=== PATIENT | female | born 1975 | race Native Hawaiian/Other Pacific Islander ===

== ENCOUNTER 2016-07-04 13:53 | Outpatient (CLI) | payer MEDICAID | END 2016-07-04 13:54 | disposition home or self-care (01) | DX: E11.9 Type 2 diabetes mellitus without complications (principal); I10 Essential (primary) hypertension ==

== ENCOUNTER 2016-07-18 15:15 | Outpatient (CLI) | payer MEDICAID | END 2016-07-18 15:16 | disposition home or self-care (01) | DX: M77.32 Calcaneal spur, left foot (principal) ==

== ENCOUNTER 2016-07-26 18:56 | Emergency (ER) | payer MEDICAID ==
[2016-07-26] MEDS ORDERED: KETOROLAC 60 MG/2 ML VIAL IM STA (19:37)
[2016-07-26] MEDS ORDERED: ONDANSETRON ODT 4 MG TABLET TL STA (19:37)
[2016-07-26] MEDS ORDERED: CYCLOBENZAPRINE 10 MG TABLET PO STA (19:37)
[2016-07-26] MEDS ORDERED: CYCLOBENZAPRINE 10 MG TABLET PO ONE (19:41)
[2016-07-26] MEDS ORDERED: KETOROLAC 60 MG/2 ML VIAL ONE (19:42)
[2016-07-26] MEDS ORDERED: ONDANSETRON ODT 4 MG TABLET ONE (19:42)
== END 2016-07-26 20:13 | disposition home or self-care (01) ==
DX: M62.838 Other muscle spasm (principal); S16.1XXA Strain of muscle, fascia and tendon at neck level, initial encounter; X58.XXXA Exposure to other specified factors, initial encounter; E78.00 Pure hypercholesterolemia, unspecified; J45.909 Unspecified asthma, uncomplicated; E11.9 Type 2 diabetes mellitus without complications; Z79.84 Long term (current) use of oral hypoglycemic drugs
CPT/HCPCS: 96372; 99283; 99284; A9270; Q0162

== ENCOUNTER 2016-10-10 07:34 | Outpatient (CLI) | payer SELFPAY ==
[2016-10-10 13:50] LABS: HEMOGLOBIN A1C 0.53 g/dL
[2016-10-10 13:58] LABS: CALCIUM 9.4 mg/dL (8.5-10.3)
== END 2016-10-10 07:35 | disposition home or self-care (01) ==
LOC: LAB.N 07:34
PROVIDERS: ATTEND Family Medicine
DX: E11.9 Type 2 diabetes mellitus without complications (principal)
CPT/HCPCS: 36415; 80048; 83036

== ENCOUNTER 2018-12-30 21:11 | Emergency (ER) | payer SELFPAY ==
[2018-12-30 21:40] LABS: BASOPHILS # (AUTO) 0.1 10^3/uL (0.0-0.1); BASOPHILS % (AUTO) 0.6 %; EOSINOPHILS # (AUTO) 0.2 10^3/uL (0.0-0.7); EOSINOPHILS % (AUTO) 2.5 %; LYMPHOCYTES # (AUTO) 2.1 10^3/uL (1.5-3.5); LYMPHOCYTES % (AUTO) 25.2 %; MEAN CORPUSCULAR HEMOGLOBIN 26.8 pg (27.0-31.0); MEAN CORPUSCULAR HGB CONC 32.1 g/dL (32.0-36.0); MEAN CORPUSCULAR VOLUME 83.4 fL (81.0-99.0); MEAN PLATELET VOLUME 10.6 fL (7.9-10.8); MONOCYTES # (AUTO) 0.6 10^3/uL (0.0-1.0); MONOCYTES % (AUTO) 7.7 %; NEUTROPHILS # (AUTO) 5.2 10^3/uL (1.5-6.6); NEUTROPHILS % (AUTO) 63.8 %; PLT - PLATELET COUNT 271 10^3/uL (130-450); RED BLOOD COUNT 5.23 10^6/uL (4.20-5.40); RED CELL DISTRIBUTION WIDTH 13.5 % (12.0-15.0); WHITE BLOOD COUNT 8.2 x10^3/uL (4.8-10.8)
[2018-12-30 21:52] LABS: ALBUMIN 3.9 g/dL (3.2-5.5); ALBUMIN/GLOBULIN RATIO 1.1 (1.0-2.2); BILIRUBIN,TOTAL 0.7 mg/dL (0.2-1.0); CREATININE 1.1 mg/dL (0.4-1.0); TOTAL PROTEIN 7.6 g/dL (6.7-8.2)
[2018-12-30 21:52] LABS: BILIRUBIN,URINE NEGATIVE (NEGATIVE); GLUCOSE, URINE (UA) NEGATIVE (NEGATIVE); KETONES,URINE (UA) NEGATIVE (NEGATIVE); LEUKOCYTE ESTERASE, URINE NEGATIVE (NEGATIVE); NITRITE,URINE NEGATIVE (NEGATIVE); OCCULT BLOOD,URINE NEGATIVE (NEGATIVE); PH,URINE 5.5 PH (5.0-7.5); PROTEIN,URINE NEGATIVE (NEGATIVE); UROBILINOGEN,URINE 0.2 (NORMAL) E.U./dL (NORMAL)
[2018-12-30 21:55] LABS: CLARITY,URINE CLEAR (CLEAR)
--- NOTE | 2018-12-30 23:48 | ED Physician Documentation ---
PD HPI ABD PAIN - Stated complaint Stated Complaint: HEART BURN/VOMITING - Chief complaint Chief Complaint: Abd Pain - History obtained from History obtained from: Patient - History of Present Illness Timing - onset: How many weeks ago (2) Timing - duration: Weeks (2) Timing - details: Gradual onset, Still present, Waxing and waning Quality: Cramping, Aching, Pain Location: Epigastric Radiation: Chest Improved by: Meds (acid reducing meds seem to help.). No: Eating Worsened by: Eating. No: Breathing, Palpation Associated symptoms: Nausea, Loss of appetite. No: Fever, Vomiting, Diarrhea, Melena, Weight loss Similar symptoms before: Has not had sx before Review of Systems Constitutional: denies: Fever, Chills, Myalgias Nose: denies: Rhinorrhea / runny nose, Congestion Throat: denies: Sore throat Cardiac: reports: Chest pain / pressure. denies: Palpitations, Pedal edema, Calf pain Respiratory: denies: Cough GI: reports: Abdominal Pain, Nausea. denies: Vomiting, Constipation, Diarrhea, Bloody / black stool : denies: Dysuria, Frequency Skin: denies: Rash, Lesions Musculoskeletal: denies: Neck pain, Back pain Neurologic: denies: Generalized weakness Endocrine: denies: Weight loss, Weight gain PD PAST MEDICAL HISTORY - Past Medical History Cardiovascular: Hypertension (but had been good after losing a lot of weight couple years ago. 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 : None HEENT: None Psych: None Musculoskeletal: None Derm: None - Past Surgical History Past Surgical History: Yes /DEFLECTOR OPERATOR: section, Tubal ligation - Present Medications Home Medications: Ambulatory Orders Medication Instructions Recorded Confirmed Atorvastatin [Lipitor] 10 mg PO DAILY 06/20/15 07/26/16 Ferrous Gluconate 324 mg PO DAILY 06/20/15 07/26/16 Loratadine 10 mg PO DAILY 06/20/15 07/26/16 Losartan [Cozaar] 50 mg PO DAILY 06/20/15 07/26/16 metFORMIN [Glucophage] 500 mg PO BID 06/20/15 06/20/15 Cetirizine HCl/Pseudoephedrine 1 each PO BID PRN #30 tab.er.12h 07/04/15 07/26/16 [Zyrtec-D Tablet] Cyclobenzaprine [Flexeril] 10 mg PO TID PRN #20 tablet 07/26/16 Ibuprofen [Motrin] 800 mg PO Q8H PRN #30 tablet 07/26/16 Ondansetron Odt [Zofran] 4 mg TL Q6H PRN #10 tablet 07/26/16 Lidocaine Viscous 2% [Xylocaine 5 ml PO Q4H PRN #100 ml 12/31/18 Viscous 2%] Omeprazole 20 mg PO DAILY #30 capsule. 12/31/18 Ondansetron Odt [Zofran] 4 mg TL Q6H PRN #15 tablet 12/31/18 Sucralfate [Carafate] 1 gm PO ACHS #28 tablet 12/31/18 - Allergies Allergies/Adverse Reactions: Allergies Allergy/AdvReac Type Severity Reaction Status Date / Time No Known Drug Allergies Allergy Verified 12/30/18 21:24 - Social History Does the pt smoke?: No Smoking Status: Never smoker Does the pt drink ETOH?: No Does the pt have substance abuse?: No - Immunizations Immunizations are current?: Yes - POLST Patient has POLST: No PD ED PE NORMAL - Vitals Vital signs reviewed: Yes - General General: Alert and oriented X 3, No acute distress, Well developed/nourished - HEENT HEENT: Pharynx benign - Neck Neck: Supple, no meningeal sign, No adenopathy - Cardiac Cardiac: RRR, No murmur - Respiratory Respiratory: Clear bilaterally - Abdomen Abdomen: Normal bowel sounds, Soft, Non distended, No organomegaly, Other (minimally tender epigastric area without guarding nor percussion tender. Not tender RUQ. ) - Back Back: No CVA TTP - Derm Derm: Normal color, Warm and dry - Neuro Neuro: Alert and oriented X 3, No motor deficit, Normal speech Results - Vitals Vitals: Vital Signs - 24 hr 12/30/18 12/30/18 12/31/18 21:19 23:53 00:36 Temperature 37 C 37 C Heart Rate 101 H 100 85 Respiratory 18 18 16 Rate Blood Pressure 181/119 H 192/111 H 176/101 H O2 Saturation 98 100 100 12/31/18 01:00 Temperature Heart Rate 70 Respiratory 17 Rate Blood Pressure 157/96 H O2 Saturation 99 Oxygen O2 Source Room air - Labs Labs: Laboratory Tests 12/30/18 12/30/18 12/30/18 21:34 21:34 21:45 WBC 8.2 RBC 5.23 Hgb 14.0 Hct 43.6 MCV 83.4 MCH 26.8 L MCHC 32.1 RDW 13.5 Plt Count 271 MPV 10.6 Neut # (Auto) 5.2 Lymph # (Auto) 2.1 Kings # (Auto) 0.6 Eos # (Auto) 0.2 Baso # (Auto) 0.1 Absolute Nucleated RBC 0.00 Nucleated RBC % 0.0 Sodium 137 Potassium 4.0 Chloride 103 Carbon Dioxide 25 Anion Gap 9.0 BUN 14 Creatinine 1.1 H Estimated GFR (MDRD) 54 L Glucose 136 H Calcium 9.0 Total Bilirubin 0.7 AST 20 ALT 19 Alkaline Phosphatase 41 L Total Protein 7.6 Albumin 3.9 Globulin 3.7 Albumin/Globulin Ratio 1.1 Lipase 36 Urine Color YELLOW Urine Clarity CLEAR Urine pH 5.5 Ur Specific [place] <=1.005 Urine Protein NEGATIVE Urine Glucose (UA) NEGATIVE Urine Ketones NEGATIVE Urine Occult Blood NEGATIVE Urine Nitrite NEGATIVE Urine Bilirubin NEGATIVE Urine Urobilinogen 0.2 (NORMAL) Ur Leukocyte Esterase NEGATIVE Ur Microscopic Review NOT INDICATED Urine Culture Comments NOT INDICATED PD MEDICAL DECISION MAKING - ED course Complexity details: reviewed results, re-evaluated patient (I would not treat BP beyond dose here, as she is without symptoms there and states her BP is usually good at home. Presume reactive to events of the day. To watch it over the next week or so. ), considered differential (seems like gastritis or ulcer type symptoms.), d/w patient Departure - Departure Disposition: 01 Home, Self Care Clinical Impression: Epigastric abdominal pain Gastritis Qualifiers: Gastritis type: unspecified gastritis Chronicity: acute Gastritis bleeding: without bleeding Qualified Code(s): K29.00 - Acute gastritis without bleeding High blood pressure Qualifiers: Hypertension type: unspecified Qualified Code(s): I10 - Essential (primary) hypertension Condition: Stable Record reviewed to determine appropriate education?: Yes Instructions: ED Hypertension Poss, ED PUD Vs Gastritis Prescriptions: Lidocaine Viscous 2% [Xylocaine Viscous 2%] 5 ml PO Q4H PRN #100 ml PRN Reason: Pain Omeprazole 20 mg PO DAILY #30 capsule.dr Ondansetron Odt [Zofran] 4 mg TL Q6H PRN #15 tablet PRN Reason: Nausea / Vomiting Sucralfate [Carafate] 1 gm PO ACHS #28 tablet Comments: This sounds like an irritation of the stomach, either gastritis or ulcer, along with some reflux. We will have you take acid reducing medicine omeprazole daily for a month. Also coating the stomach with sucralfate 3 or 4 times a day for the first week. To this he can add antacid such as Maalox or Mylanta and use some lidocaine with it if needed for stomach discomfort. Ondansetron if needed for nausea. Follow-up with your primary care, call for an appointment for about 7 to 10 days from now to see how well you have improved with the medicines. Your blood pressure was elevated here in the ER. Sounds like it has been running fairly normal so I would just suggest checking it daily or so for the next week as well and see if it is consistently elevated or more in the normal range. Recheck if not improving well over the next few days. Discharge Date/Time: 12/31/18 01:32
[2018-12-31] MEDS ORDERED: cloNIDine 0.1 MG TABLET PO STA (00:18)
[2018-12-31] MEDS ORDERED: FAMOTIDINE 20 MG TABLET PO STA (00:18)
[2018-12-31] MEDS ORDERED: LIDOCAINE VISCOUS 2% 15 ML UDC MM STA (00:18)
[2018-12-31] MEDS ORDERED: MAG HYDROX/AL HYDROX/SIMETH 30 ML UDC PO STA (00:18)
[2018-12-31 01:01] VITALS: BP 157/96
== END 2018-12-31 01:32 | disposition home or self-care (01) ==
LOC: ED 21:11
DX: K29.00 Acute gastritis without bleeding (principal); I10 Essential (primary) hypertension; E11.9 Type 2 diabetes mellitus without complications; Z79.84 Long term (current) use of oral hypoglycemic drugs
CPT/HCPCS: 36415; 80053; 81003; 83690; 85025; 99283; 99284; A9270; 81001; 87086